=== PATIENT | male | born 1990 | race Caucasian/White ===

== ENCOUNTER 2024-02-10 22:14 | Emergency (ER) | payer SELFPAY ==
[2024-02-10 22:15] VITALS: BP 135/74
[2024-02-10 22:30] LABS: Urine Albumin Negative (Neg - Trace); Urine Bilirubin Negative (Negative); Urine Character Clear (Clear); Urine Color Straw; Urine Glucose Negative (Negative); Urine Ketone Negative (Negative); Urine Leukocyte Negative (Negative); Urine Nitrite Negative (Negative); Urine Occult Blood 1+ (Negative); Urine Specific Gravity 1.005 (<1.030); Urine Urobilinogen Negative (Neg - 1+); Urine pH 6.5 (5.0-9.0)
[2024-02-10 22:47] LABS: Urine Red Blood Cell 0-2 /HPF (0-2)
[2024-02-10 22:56] VITALS: BP 107/83
[2024-02-10 23:00] VITALS: BP 111/69
--- NOTE | 2024-02-11 00:30 | ED.GENMED ---
History of Present Illness
General
Chief Complaint: Musculo-Skeletal Complaint
Source: patient
Exam Limitations: none
Time Seen by Provider: 02/10/24 23:38
History of Present Illness
History of Present Illness:
This is a 33 year old male that comes in with c/o left sided flank pain. States that he thinks he has a kidney infection. States that he started with pain on the left side low back yesterday. States that he was unable to get comfortable all night
Sates that the pain increases when he lays down. States that it he coughs or burps this makes the pain worse. States that it seems to be traveling to the right side tonight and his ribs hurt earlier. States that he thinks he had a fever as he felt
hot. States that he also has a headache. Denies any chills, chest pain, SOB, abd pain, nausea, vomiting, diarrhea, dizziness, urinary burning.
Past History
Past History
ED Past Medical History: Psychiatric and Other (TBI); Negative Asthma, HTN, Hypercholesterolemia or Hypothyroidism
ED Past Surgical History: Other (TBI)
Social History
Tobacco: Non-smoker
Alcohol: None
Drug: Other
Personal: Single
Living: alone
Employment: Other
Family History
Family History: Unable to obtain
Review of Systems
Review of Systems
All Other Systems: ROS reviewed and negative except as documented in HPI and ROS
Constitutional: Reports other (felt hot); Denies chills
EENT: Reports no symptoms
Respiratory: Reports no symptoms; Denies cough or trouble breathing
Cardiac: Reports no symptoms; Denies chest pain
ABD/GI: Denies abdominal pain, nausea, vomiting or diarrhea
: Reports flank pain (Left sided)
Musculoskeletal: Reports no symptoms
Skin: Reports no symptoms
Neurological: Reports headache; Denies dizzy
Psychiatric: Reports no symptoms
Phy Exam
General Physical Exam
General Presentation: no apparent distress
General age: appears stated age
General Skin: warm and dry
General Habitus: normal
General Mental: alert
General Hydration: appears well hydrated
ENT Exam
ENT Exam: TM's normal, pharynx normal and neck supple
Eye Exam
Eye Exam: EOMI
Cardiovascular Exam
Cardiovascular Exam: regular rate/rhythm, no edema, no murmur and normal peripheral pulses
Pulmonary Exam
Pulmonary Exam: lungs clear, no respiratory distress, no rales, chest non tender, no crackles, no rhonchi, no wheezing and no cough
Gastrointestinal Exam
Gastrointestinal Exam: normal bowel sounds, non tender, soft, no organomegaly, no pulsatile mass, non distended and cva tenderness (Left sided)
Musculoskeletal Exam
Musculoskeletal Exam: full ROM and no edema
Skin Exam
Skin Exam: normal color, warm/dry, no rash and no petechia
Psychiatric Exam
Psychiatric Exam: normal mood/affect
Course
Orders/Labs/Results
Orders:
Orders
02/10/24 22:22
Urinalysis Reflex To Culture Urgent
Date Specimen was Collected: 02/10/24
Time Specimen was Collected: 22:17
Urine Microscopic Reflex Cult Urgent
02/11/24 00:30
CT Abd/pel Without Iv Or Oral Urgent
Comment:
Reason For Exam: Left flank pain
Ketorolac [Toradol] 30 mg IV NOW STA
02/11/24 00:41
Complete Blood Count/With Diff Urgent
Comprehensive Metabolic Panel Urgent
Lipase Urgent
Comment: ADD ON
02/11/24 01:45
Add On- LAB Urgent
Tests Added?: Lipase
02/11/24 02:13
CR Chest - 2 Views Urgent
Comment:
Reason For Exam: Left sided mid back pain can't lay down
Abnormal Lab Results
02/10/24 02/11/24
22:22 00:41
RBC 4.62 L 10^6/uL
(4.70-6.10)
Hct 38.7 L %
(39.0-52.0)
Absolute Monos (auto) 1.1 H 10^3/uL
(0.1-0.6)
Monocytes % 10.6 H %
(1.7-9.3)
Total Bilirubin 1.4 H mg/dl
(0.2-1.3)
AST 345 H U/L
(17-59)
ALT 85 H U/L
(0-50)
Ur Occult Blood Reflex 1+ A
(Negative)
02/11/24 00:41
02/11/24 00:41
Urine negative for infection, positive for blood, Total emma slightly elevated. AST/ALT elevation.
Vital Signs
Initial and Last Documented VS:
Initial Vital Signs
Temp Pulse Resp BP Pulse Ox
99.5 F 73 16 135/74 100
02/10/24 22:15 02/10/24 22:15 02/10/24 22:15 02/10/24 22:15 02/10/24 22:15
Last Documented Vital Signs
Temp Pulse Resp BP Pulse Ox
99.5 F 81 19 125/81 95
02/10/24 22:15 02/11/24 00:43 02/11/24 00:43 02/11/24 01:00 02/11/24 00:43
MDM/Problems Addressed
Differential Diagnosis Includes:
Renal calculus, Musculoskeletal pain
MDM/Problems Addressed:
This is a 33 year old male that comes in with c/o left flank pain. States that this started last night and he was unable to get comfortable.
Will check labs, CT scan and told patient that his urine is negative for infection but positive for blood.
Back into see patient. Explained that his blood work shows elevated Liver enzymes. This can be due to medication or a viral illness. Your CT is negative for any acute process. Patient to follow up with the family doctor in 2-3 days. Suggested that
he has his blood work recheck. Patient to use Ibuprofen 600mg every 6 hours for pain. Return with any concerns.
Chronic conditions affecting care:
NA
Acute Exacerbation and/or Progression of Chronic Illness:
NA
*Radiology
Radiology exam reviewed: preliminary read by ED provider (Chest- Negative for any cardiopulmonary process), radiology read reviewed (CT night hawk- The urinary bladder wall is thickened but the bladder is non-distended. This may indicate Cystitis.
Correlate with urinalysis. No obstructing renal stones or Hydronephrosis. No evidence of diverticulitis or colitis. Normal appendix. No bowel obstruction. No free air. No concerning ) and other (CT cont- bone findings. )
*Pulse Oximetry
Patient hypoxic: no
*EKG
Interpreted by ED Provider?: NA
Rate: EKG- N/A
*Restuarant Crew Worker Interpretation
Rate: Restuarant Crew Worker- N/A
*Critical Care Note
Total Time (30-74mins, 75-104mins- exclusive of procedures): Not Applicable
ED Attending Note
-
Portions of this chart may have been created with voice recognition software.� Occasional wrong word or��sound alike� substitutions may have occurred due to the inherent limitations of voice recognition software.
Discharge Plan
Departure
Patient Disposition: Home (Routine Discharge)
Date of Disposition: 02/11/24
Time of Disposition: 02:29
Patient with high blood pressure during this ER visit?: No
Condition: Good
Covid-19: Not Applicable
Discharge Problem:
Acute left-sided back pain
Instructions: Low back pain in adults
Prescriptions:
No Action
No Current Medications
0
Referrals:
UNKNOWN - PT DOES,NOT KNOW [Family Provider] -
Activity Restrictions/Additional Instructions:
As discussed, your blood work shows that your liver enzymes are elevated. Please follow up with the family doctor for recheck and he can repeat the labs. Explained that the CT is normal. Explained that this may be musculoskeletal pain. Patient can
use Ibuprofen 600mg every 6 hours for pain. You can use heat or ice to the area. IF YOU HAVE ANY OTHER CONCERNS PLEASE RETURN TO THE EMERGENCY ROOM .
Interventions
Interventions:
*Risk Screen - Suicide Last Done: 02/10/24 22:15
*General Assessment Last Done: 02/10/24 23:00
*Neglect/Abuse Screening Last Done: 02/10/24 22:15
ED- Fall Risk Assessment Last Done: 02/10/24 23:01
*ED COVID-19 Vaccine History Last Done: 02/10/24 23:00
ED-Musculoskeletal Assessment Last Done: 02/10/24 23:01
Discharge Date and Time
Print Language: LAO
[2024-02-11 00:39] VITALS: BP 128/83
[2024-02-11 00:46] LABS: % Basophils 0.8 % (0-2); % Eosinophils 3.3 % (0-6); % Immature Granulocytes 0.3 % (0-0.5); % Lymphocytes 25.8 % (20.5-51.1); % Monocytes 10.6 % (1.7-9.3); % Neutrophils 59.2 % (42.2-75.2); Absolute Basophils 0.1 10^3/uL (0-0.2); Absolute Eosinophils 0.4 10^3/uL (0-0.7); Absolute Lymphocytes 2.7 10^3/uL (1.2-3.4); Absolute Monocytes 1.1 10^3/uL (0.1-0.6); Absolute Neutrophils 6.2 10^3/uL (1.4-6.5); Hematocrit 38.7 % (39.0-52.0); Hemoglobin 13.6 g/dL (13.0-18.0); Mean Corp Hgb Conc. 35.1 g/dL (33.0-37.0); Mean Corpuscular Hgb 29.4 pg (27.0-31.0); Mean Corpuscular Volume 83.8 fL (80.0-94.0); Mean Platelet Volume 9.8 fL (7.4-10.4); Nucleated Red Blood Cells % 0 % (-); Platelet Count 220 10^3/uL (130-400); Red Blood Cell Count 4.62 10^6/uL (4.70-6.10); Red Cell Dist. Width 12.2 % (11.5-14.5); White Blood Cell Count 10.5 10^3/uL (4.8-10.8)
[2024-02-11 01:00] VITALS: BP 125/81
[2024-02-11 01:18] LABS: ALT (SGPT) 85 U/L (0-50); AST (SGOT) 345 U/L (17-59); Albumin 3.9 g/dl (3.5-5.0); Alkaline Phosphatase 58 U/L (38-126); Blood Urea Nitrogen 18 mg/dl (9-20); Carbon Dioxide 26 mmol/L (22-30); Chloride 104 mmol/L (98-107); Glucose 95 mg/dl (70-99); Potassium 3.9 mmol/L (3.5-5.1); Sodium 142 mmol/L (135-145); Total Bilirubin 1.4 mg/dl (0.2-1.3); Total Protein 6.5 g/dl (6.3-8.2); eGFR > 60.00
[2024-02-11 02:38] LABS: Lipase 88 U/L (23-300)
== END 2024-02-11 02:40 | disposition home or self-care (01) ==
LOC: EMR 22:14
PROVIDERS: Clinical Nurse Specialist Family Health; Emergency Medicine; EMERGENCY PHYSICIAN Emergency Medicine
DX: M54.9 Dorsalgia, unspecified (principal); R74.8 Abnormal levels of other serum enzymes
CPT/HCPCS: 99284; 71046; 74176; 80053; 81003; 81015; 83690; 85025